=== PATIENT | female | born 2000 | race Caucasian/White ===

== ENCOUNTER 2021-05-11 15:10 | Emergency (ER) | payer BC ==
[2021-05-11 17:04] LABS: Absolute Lymphocytes (CBC) 1.4 K/uL (0.7-4.9); Basophils % 0.3 % (0-1.3); Hematocrit 38.1 % (36.0-45.0); Lymphocytes % 13.1 % (15.3-44.8); MPV 8.7 fL (7.6-11.3)
[2021-05-11 17:12] LABS: Urine Blood 3+ (Negative); Urine Glucose Negative (Negative); Urine Protein 2+ (Negative); Urine Specific Gravity >=1.030 (1.005-1.030); Urine pH 5.5 (5.0-7.0)
[2021-05-11 17:28] LABS: ALT/SGPT 45 U/L (12-78); AST/SGOT 24 U/L (15-37); Albumin 3.3 g/dL (3.4-5.0); Alkaline Phosphatase 76 U/L (45-117); BUN Blood Urea Nitrogen 10 mg/dL (7-18); Bicarbonate 24 mmol/L (21-32); Bilirubin Direct < 0.1 mg/dL (0-0.2); Bilirubin Total 0.2 mg/dL (0.2-1.0); Glucose Level 162 mg/dL (74-106); Lipase 158 U/L (73-393); Protein, Total 8.1 g/dL (6.4-8.2); Sodium Level 141 mmol/L (136-145)
--- NOTE | 2021-05-11 17:28 | RAD REPORT ---
EXAM DESCRIPTION: CTStone Protocol - 05/11/2021 5:18 pm CLINICAL HISTORY: FLANK PAIN COMPARISON: <Comparisons> TECHNIQUE: CT of the abdomen and pelvis was performed. All CT scans are performed using dose optimization technique as appropriate and may include automated exposure control or mA/KV adjustment according to patient size. FINDINGS: Lower chest: No acute abnormality. Liver: No acute abnormality or suspicious lesions. Biliary: No biliary ductal dilatation. Stomach: No significant focal abnormality. Duodenum: No significant focal abnormality. Pancreas: No significant abnormality. Spleen: No significant abnormality. Adrenal: No suspicious lesions. Kidney/ureter: Mild right-sided hydronephrosis secondary to a 4 mm stone in the right UVJ. Punctate r enal calculi bilaterally. Retroperitoneum: No retroperitoneal adenopathy. Vascular: No aneurysm. Bowel: No significant focal abnormality. Peritoneum: No ascites or free air. Bladder: Bladder wall thickening though the bladder is underdistended. Reproductive: No adnexal masses. Bones: No acute fracture. Other: n/a IMPRESSION: Mild right-sided hydroureteronephrosis secondary to a 4 mm stone at the right UVJ.
[2021-05-11 17:29] LABS: Urine Bacteria 20-50 /HPF (<20); Urine RBC TNTC /HPF (NONE SEEN)
[2021-05-11] MEDS ORDERED: MORPHINE 4 MG/ML SYR ONE (17:46)
[2021-05-11] MEDS ORDERED: TAMSULOSIN 0.4 MG SR CAP ONE (17:46)
[2021-05-11] MEDS ORDERED: ONDANSETRON 4 MG/2 ML VIAL ONE (17:46)
[2021-05-11] MEDS ORDERED: CEFTRIAXONE 1000 MG/VIAL ONE (18:09)
[2021-05-11] MEDS ORDERED: NA CHLORIDE 0.9% 100 ML ONE (18:10)
[2021-05-11] MEDS ORDERED: MAGNESIUM SULFATE 1 gm IVPB 1 GM/100 ML BAG IV ONE (18:10)
--- NOTE | 2021-05-11 18:59 | EDPHYS ---
Physician Documentation [facility] Name: Rama Mendosa Age: 21 yrs Sex: Female : 2000 Arrival Date: 05/11/2021 Time: 15:18 Bed 12 Private MD: ED Physician Barry Guillaume HPI: 05/11 17:00 This 21 yrs old Female presents to ER via Ambulatory with complaints of Abdominal Pain, cp Nausea. 17:00 The patient complains of pain in the right flank. cp 17:00 The pain radiates to the abdomen. Onset: The symptoms/episode began/occurred suddenly, cp 2 hour(s) ago. 17:00 Associated signs and symptoms: Pertinent positives: nausea, Pertinent negatives: cp diarrhea, fever, pain radiating to the lower extremities, vomiting. Severity of pain: in the emergency department the pain is unchanged despite home interventions. 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 - Social history:: Smoking status: Patient denies any tobacco usage or history of. ROS: 17:05 Constitutional: Negative for body aches, chills, fever, poor PO intake. cp 17:05 Eyes: Negative for injury, pain, redness, and discharge. cp 17:05 ENT: Negative for ear pain, sore throat, difficulty swallowing, difficulty handling secretions. 17:05 Cardiovascular: Negative for chest pain. 17:05 Respiratory: Negative for cough, shortness of breath, wheezing. 17:05 Abdomen/GI: Positive for abdominal pain, nausea, Negative for vomiting, diarrhea, constipation. 17:05 Back: Positive for flank pain, on the right. 17:05 Skin: Negative for rash. 17:05 Neuro: Negative for altered mental status, headache, weakness. 17:05 All other systems are negative. Exam: 17:10 Constitutional: The patient appears in no acute distress, alert, awake, non-toxic, well cp developed, well nourished, uncomfortable. 17:10 Head/Face: Normocephalic, atraumatic. cp 17:10 Chest/axilla: Inspection: normal. 17:10 Cardiovascular: Rate: normal, Rhythm: regular, Edema: is not appreciated, JVD: is not appreciated. 17:10 Respiratory: the patient does not display signs of respiratory distress, Respirations: normal, no use of accessory muscles, no retractions, labored breathing, is not present, Breath sounds: are clear throughout, no decreased breath sounds, no stridor, no wheezing. 17:10 Abdomen/GI: Inspection: abdomen appears normal, Bowel sounds: active, all quadrants, Palpation: soft, in all quadrants, moderate abdominal tenderness, in the posterior aspect of right lateral abdomen and anterior aspect of right lateral abdomen, rebound tenderness, is not appreciated, involuntary guarding, is not appreciated. 17:10 Back: CVA tenderness, is absent. 17:10 Skin: no rash present. 17:10 Neuro: Orientation: to person, place \T\ time. Mentation: is normal, Motor: moves all fours, strength is normal, Gait: is steady. Vital Signs: 16:39 BP 130 / 80; Pulse 88; Resp 16; Temp 97.8(TE); Pulse Ox 100% on R/A; Weight 86.18 kg; ss Height 5 ft. 1 in. (154.94 cm); Pain 10/10; 16:39 Body Mass Index 35.90 (86.18 kg, 154.94 cm) ss MDM: 16:51 Patient medically screened. kelsy 17:00 Differential diagnosis: nephrolithiasis, pyelonephritis, UTI, diverticulitis, cp pancreatitis. 18:58 Data reviewed: vital signs, nurses notes, lab test result(s), radiologic studies, CT cp scan. 18:58 Counseling: I had a detailed discussion with the patient and/or guardian regarding: the cp historical points, exam findings, and any diagnostic results supporting the discharge/admit diagnosis, lab results, radiology results, to return to the emergency department if symptoms worsen or persist or if there are any questions or concerns that arise at home. Response to treatment: the patient's symptoms have markedly improved after treatment. ED course: VSS. Pain and nausea markedly improved. Will discharge to home for continued monitoring. 05/11 16:41 Order name: Basic Metabolic Panel; Complete Time: 17:37 ss 05/11 17:37 Interpretation: Normal except: GLUC 162; GFR 75. 05/11 16:41 Order name: CBC with Diff; Complete Time: 17:37 05/11 17:38 Interpretation: Normal except: RBC 5.30; MCV 71.9; MCH 22.6; MCHC 31.5; RDW 17.9; JAC% cp 83.4; LYM% 13.1; MN% 2.6; NEUT A 9.1. 05/11 16:41 Order name: Hepatic Function; Complete Time: 17:37 05/11 17:38 Interpretation: Normal except: ALB 3.3; GLOB 4.8; A/G 0.7. 05/11 16:41 Order name: Lipase; Complete Time: 17:37 05/11 17:00 Order name: Urine Microscopic Only; Complete Time: 17:37 05/11 17:38 Interpretation: Normal except: URBC TNTC; UBACT 20-50. 05/11 17:11 Order name: Urine Dipstick-Ancillary; Complete Time: 17:37 [facility] 05/11 17:38 Interpretation: Normal except: UKET Trace; UBLD 3+; UPROT 2+. 05/11 17:02 Order name: CT Stone Protocol; Complete Time: 17:37 05/11 17:41 Interpretation: Report reviewed. 05/11 17:30 Order name: Urine Culture [facility] 05/11 16:41 Order name: IV Saline Lock; Complete Time: 17:10 05/11 16:41 Order name: Labs collected and sent; Complete Time: 17:10 05/11 17:00 Order name: Urine Dipstick-Ancillary (obtain specimen); Complete Time: 17:10 05/11 17:00 Order name: Urine Test (obtain specimen); Complete Time: 17:10 Administered Medications: 18:05 Drug: Zofran (Ondansetron) 4 mg Route: IVP; Site: left antecubital; ss 19:18 Follow up: Response: No adverse reaction ss 18:07 Drug: morphine 4 mg Route: IVP; Site: left antecubital; ss 19:18 Follow up: Response: No adverse reaction; Pain is decreased ss 18:07 Drug: Flomax (tamsulosin) 0.4 mg Route: PO; ss 19:25 Follow up: Response: No adverse reaction ss 18:22 Drug: Rocephin (cefTRIAXone) 1 grams Route: IV; Rate: calculated rate; Site: right ss antecubital; 18:50 Follow up: IV Status: Completed infusion iw 19:18 Drug: Hydrocodone-Acetaminophen (7.5 mg-325 mg) 1 tabs Route: PO; ss 19:50 Follow up: Response: No adverse reaction; Medication administered at discharge. ss 19:25 Drug: Magnesium Sulfate 1 grams Route: IVPB; Infused Over: 20 mins; Site: left ss antecubital; 19:50 Follow up: IV Status: Completed infusion ss Disposition: 05/12 09:20 Co-signature as Attending Physician, Barry Guillaume MD I agree with the assessment and kelsy plan of care. Disposition Summary: 05/11/21 18:58 Discharge Ordered Location: Home cp Problem: new cp Symptoms: have improved cp Condition: Stable cp Diagnosis - Calculus of ureter - right cp Followup: cp - With: Jose Esparza MD - When: 2 - 3 days - Reason: pain continues Discharge Instructions: - Discharge Summary Sheet cp - Kidney Stones cp - Renal Colic cp Forms: - Medication Reconciliation Form cp - Thank You Letter cp - Antibiotic Education cp - Prescription Opioid Use cp Prescriptions: - Flomax 0.4 mg Oral capsule - take 1 capsule by ORAL route once daily As needed 1/2 hour following the same cp meal each day; 5 capsule; Refills: 0, Product Selection Permitted - Zofran 4 mg Oral Tablet - take 1 tablet by ORAL route every 12 hours As needed; 20 tablet; Refills: 0, cp Product Selection Permitted - Cipro 500 mg Oral Tablet - take 1 tablet by ORAL route every 12 hours for 7 days; 14 tablet; Refills: 0, cp Product Selection Permitted - Tylenol-Codeine #3 300 mg-30 mg Oral - take 2 tablet by ORAL route every 6-8 hours As needed; 20 tablet; Refills: 0, cp Product Selection Permitted Signatures: Dispatcher [employer] Barry Ware MD MD cha Smirch, Shelby RN RN ss Barry Llamas PA PA cp Williams, Irene RN iw
--- NOTE | 2021-05-11 18:59 | ER ---
Nurse's Notes [facility] Name: Rama Mendosa Age: 21 yrs Sex: Female : 2000 Arrival Date: 05/11/2021 Time: 15:18 Bed 12 Private MD: Diagnosis: Calculus of ureter-right Presentation: 05/11 16:39 Chief complaint: Patient states: Epigastric pain that radiates towards RUQ. + nausea. ss Coronavirus screen: Client denies travel out of the [place] in the last 14 days. Ebola Screen: Patient denies exposure to infectious person. Patient denies travel to an Ebola-affected area in the 21 days before illness onset. Initial Sepsis Screen: Does the patient meet any 2 criteria? No. Patient's initial sepsis screen is negative. Does the patient have a suspected source of infection? No. Patient's initial sepsis screen is negative. Risk Assessment: Do you want to hurt yourself or someone else? Patient reports no desire to harm self or others. Onset of symptoms was May 11, 2021 at 14:30. 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 - Social history:: Smoking status: Patient denies any tobacco usage or history of. Screenin:39 Abuse screen: Denies threats or abuse. Denies injuries from another. Nutritional ss screening: No deficits noted. Tuberculosis screening: Never had TB. Fall Risk None identified. Assessment: 16:39 General: Appears uncomfortable, Behavior is calm, cooperative, Denies fever, feeling ss ill. Pain: Complains of pain in epigastric area and right upper quadrant Pain currently is 10 out of 10 on a pain scale. Neuro: Level of Consciousness is awake, alert, obeys commands, Oriented to person, place, time, situation. Respiratory: Airway is patent Respiratory effort is even, unlabored, Respiratory pattern is regular, symmetrical. GI: Abdomen is non-distended. Derm: Skin is intact, is healthy with good turgor, Skin is dry, Skin is pink, warm \T\ dry. normal. 19:00 Reassessment: Patient appears in no apparent distress at this time. Patient and/or iw family updated on plan of care and expected duration. Pain level reassessed. Patient is alert, oriented x 3, equal unlabored respirations, skin warm/dry/pink. Vital Signs: 16:39 BP 130 / 80; Pulse 88; Resp 16; Temp 97.8(TE); Pulse Ox 100% on R/A; Weight 86.18 kg; ss Height 5 ft. 1 in. (154.94 cm); Pain 10/10; 16:39 Body Mass Index 35.90 (86.18 kg, 154.94 cm) ss ED Course: 15:18 Patient arrived in ED. mr 16:39 Patient has correct armband on for positive identification. Bed in low position. Call ss light in reach. 16:40 Triage completed. ss 16:40 Arm band placed on right wrist. ss 16:50 Barry Llamas PA is PHCP. cp 16:50 Barry Guillaume MD is Attending Physician. cp 17:10 Inserted saline lock: 22 gauge in right antecubital area, using aseptic technique. ss Blood collected. 17:18 CT Stone Protocol In Process Unspecified. EDMS 17:27 Liyah Walter, MESHA is Primary Nurse. iw 18:00 Inserted saline lock: 22 gauge in left antecubital area, using aseptic technique. ss 18:07 No provider procedures requiring assistance completed. IV discontinued, intact, ss bleeding controlled, No redness/swelling at site. Pressure dressing applied. 18:57 Jose Esparza MD is Referral Physician. cp 19:50 IV discontinued, intact, bleeding controlled, No redness/swelling at site. Pressure ss dressing applied. Administered Medications: 18:05 Drug: Zofran (Ondansetron) 4 mg Route: IVP; Site: left antecubital; ss 19:18 Follow up: Response: No adverse reaction ss 18:07 Drug: morphine 4 mg Route: IVP; Site: left antecubital; ss 19:18 Follow up: Response: No adverse reaction; Pain is decreased ss 18:07 Drug: Flomax (tamsulosin) 0.4 mg Route: PO; ss 19:25 Follow up: Response: No adverse reaction ss 18:22 Drug: Rocephin (cefTRIAXone) 1 grams Route: IV; Rate: calculated rate; Site: right ss antecubital; 18:50 Follow up: IV Status: Completed infusion iw 19:18 Drug: Hydrocodone-Acetaminophen (7.5 mg-325 mg) 1 tabs Route: PO; ss 19:50 Follow up: Response: No adverse reaction; Medication administered at discharge. ss 19:25 Drug: Magnesium Sulfate 1 grams Route: IVPB; Infused Over: 20 mins; Site: left ss antecubital; 19:50 Follow up: IV Status: Completed infusion ss Outcome: 18:58 Discharge ordered by MD. cp 19:50 Discharged to home ambulatory, with family. ss 19:50 Condition: good 19:50 Discharge instructions given to patient, family, Instructed on discharge instructions, follow up and referral plans. medication usage, Demonstrated understanding of instructions, follow-up care, medications, Prescriptions given X 4. 19:51 Patient left the ED. ss Signatures: Dispatcher [employer] Isabel Croft Irene, Caridad Burt RN, RN RN ss Barry Llamas, PA PA cp
[2021-05-11] MEDS ORDERED: HYDROCODONE/APAP 7.5/325 MG TAB ONE (19:17)
[2021-05-11 20:01] VITALS: BP 130/80; TEMP 97.8; O2SAT 100
== END 2021-05-11 19:51 | disposition home or self-care (01) ==
LOC: ER 15:10
DX: N20.1 Calculus of ureter (principal)
CPT/HCPCS: 87088; 85025; 87086; 80048; 36415; 80076; 83690; 76377; 74176; 99284; J3475; J2405; 81003; 81015